=== PATIENT | female | born 1995 | race Caucasian/White ===

== ENCOUNTER 2019-07-10 17:08 | Emergency (ER) | payer BC ==
[~2019-07-10] VITALS: Ht 167.6 cm; Wt 81.8 kg
[2019-07-10 17:22] VITALS: BP 122/83; TEMP 97.3
[2019-07-10] MEDS ORDERED: ULTRAM 50MG TAB50 MG PO (19:05)
[2019-07-10] MEDS ORDERED: AMOXICILLIN 50500 MG PO (19:05)
[2019-07-10 19:20] VITALS: PULSE 72
== END 2019-07-10 19:20 | disposition home or self-care (01) ==
LOC: COL.ER 17:08
DX: K04.7 Periapical abscess without sinus (principal); J45.909 Unspecified asthma, uncomplicated; Z88.5 Allergy status to narcotic agent; Z88.8 Allergy status to other drugs, medicaments and biological substances

== ENCOUNTER 2019-07-14 11:25 | Emergency (ER) | payer BC ==
[~2019-07-14] VITALS: Ht 160 cm; Wt 81.8 kg
[~2019-07-14 11:25] MED LIST: AMOXICILLIN 50500 MG PO; ULTRAM 50MG TAB50 MG PO
[2019-07-14 11:37] VITALS: BP 124/84; TEMP 96.7
[2019-07-14] MEDS ORDERED: LEXAPRO20 MG PO (11:47)
[2019-07-14] MEDS ORDERED: ATARAX 25MG25 MG/TAB PO (11:48)
[2019-07-14] MEDS ORDERED: ULTRAM 50MG TAB50 MG PO (12:36)
[2019-07-14] MEDS ORDERED: ZOFRAN ODT4 MG PO (12:36)
[2019-07-14 13:00] VITALS: PULSE 86
== END 2019-07-14 13:00 | disposition home or self-care (01) ==
LOC: COL.ER 11:25
DX: K08.89 Other specified disorders of teeth and supporting structures (principal); F32.9 Major depressive disorder, single episode, unspecified; F41.9 Anxiety disorder, unspecified; Z88.1 Allergy status to other antibiotic agents